=== PATIENT | female | born 1950 | race Two or more races ===

== ENCOUNTER 2022-03-31 15:13 | Outpatient (CLI) | payer MEDICARE | END 2022-03-31 23:59 | disposition home or self-care (01) | LOC: LAB 15:13 | PROVIDERS: ATTEND Orthopaedic Surgery | DX: Z01.812 Encounter for preprocedural laboratory examination (principal); Z20.822 Contact with and (suspected) exposure to COVID-19 | CPT/HCPCS: U0003; C9803 ==